=== PATIENT | male | born 1985 ===

== ENCOUNTER → 2020-10-21 | Outpatient (CLI) | payer BC ==
--- NOTE | 2020-10-21 14:21 | EST ---
EXERCISE STRESS AGE: 35 SEX: Male HT: 69" WT: 190 PROTOCOL: Billy STAGE: IV DURATION OF EXERCISE: 10 minutes HEART RATE REST: 88 BLOOD PRESSURE REST: 139/74 MAXIMUM HEART RATE ACHIEVED: 184 MAXIMUM BLOOD PRESSURE: 188/73 85% MPHR: 157 100% MPHR: 185 METS: 11.9 INDICATIONS: Chest pain. CLINICAL INFORMATION: STRESS DATA: Heart rate is 88, pressure is 139/74 mmHg. Baseline EKG showed sinus mechanism. The patient exercised on the treadmill according to Billy protocol for a total of 10 minutes and achieved 11.9 METs. The max heart rate was 184, which is about 100% of maximum predicted heart rate and maximum blood pressure was 188/73 mmHg. Clinically, the patient has no symptoms and the EKG did not show any significant ST or T-wave abnormalities. CONCLUSION: 1. Excellent exercise tolerance. 2. Normal EKG in response to exercise. MMKACYL / VERON: [id number] /
== END | disposition home or self-care (01) ==
LOC: RADNMMAIN 10:40
PROVIDERS: ATTEND Family Medicine
DX: R07.9 Chest pain, unspecified (principal)
CPT/HCPCS: 93017